=== PATIENT | male | born 1975 | race Hispanic/Latino ===

== ENCOUNTER 2024-09-20 06:00 | Emergency (ER) | payer SELFPAY ==
[~2024-09-20] VITALS: Ht 167.6 cm; Wt 47.6 kg
[2024-09-20 06:50] VITALS: TEMP 99.5
[2024-09-20] MEDS: KETOROLAC TROMETHAMINE 30 MG/ML VIAL IM STA (07:53)
[2024-09-20] MEDS: ACETAMINOPHEN 325 MG TAB PO ONE (07:53)
[2024-09-20 08:36] LABS: STREPTOCOCCUS GRP A ANTIGEN NEGATIVE (NEGATIVE)
[2024-09-20 08:37] LABS: CORONAVIRUS COVID-19 AG NEGATIVE (NEGATIVE); INFLUENZA A AG NEGATIVE (NEGATIVE); INFLUENZA B AG NEGATIVE (NEGATIVE)
[2024-09-20 08:57] VITALS: PULSE 95; RESP 16; O2SAT 98
== END 2024-09-20 10:22 | disposition home or self-care (01) ==
LOC: ER 06:11
DX: R07.89 Other chest pain (principal); R05.9 Cough, unspecified; R09.89 Other specified symptoms and signs involving the circulatory and respiratory systems; E11.9 Type 2 diabetes mellitus without complications; Z11.52 Encounter for screening for COVID-19
CPT/HCPCS: 71101; 83518; 87070; 87428; 93005; 99284; J1885